=== PATIENT | female | born 1950 | race Caucasian/White ===

== ENCOUNTER 2022-07-27 12:35 | Observation (INO) ==
[2022-07-27] MEDS ORDERED: IOPAMIDOL 100 ML BOTTLE IV ONE (12:36)
--- NOTE | 2022-07-27 13:06 | Emergency Department Note ---
Neuro HPI General Chief Complaint: Neuro Symptoms/Deficit Stated Complaint: speech impairment Time Seen by Provider: 07/27/22 12:46 Source: patient and family Mode of arrival: ambulatory Limitations: no limitations History of Present Illness HPI Narrative: Narrative: Patient presents to ED with complaints of difficulty speaking. Patient states that she went to bed about 1030 last night and everything was fine. She woke up at 7 AM but did not speak and anybody. She called her daughter about 11 AM this morning and her daughter noticed that patient was not making any sense and her words were incoherent. She went over to the patient's house and patient was still incoherent and not making any sense when she tried to speak. She states that 1130 patient's symptoms started to get better in the daughter was able to understand the patient but her sentences were not making sense and she was talking about things that did not happen. She decided to come here to the ED. Here in the ED patient is back to baseline per daughter. Patient denies facial droopiness, extremity weakness, extremity numbness, cardiac chest pain, heart palpitation, shortness of breath, hemoptysis, vision changes, gait instability, bowel bladder incontinence, fever, chills, nausea, vomiting, diarrhea, dysuria, hematuria, urinary frequency. 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 She recently had a biopsy but still waiting on the results of that biopsy. Patient denies any other alleviating or aggravating factors. Related Data Home Medications Medication Instructions Recorded Confirmed Cranberry Tabs 1 tab PO QDAY 09/24/19 07/13/22 albuterol sulfate 90 mcg/actuation 2 puff inhalation QID PRN 09/24/19 07/13/22 aerosol inhaler (ProAir HFA) shortness of breath or wheezing cholecalciferol (vitamin D3) 50 2,000 unit PO QDAY 09/24/19 07/13/22 mcg (2,000 unit) capsule fluticasone propionate 50 1 spray intranasal BID 09/24/19 07/13/22 mcg/actuation nasal spray,suspension (Flonase Allergy Relief) famotidine 20 mg tablet 20 mg PO QDAY 11/06/20 07/13/22 vit C 250 mg-vit E 90 mg-zinc 40 1 tab PO BID 03/02/21 07/13/22 mg-copper 1 to-[id number] capsule (PreserVision AREDS-2) aspirin 325 mg tablet 325 mg PO QDAY PRN 07/13/22 07/13/22 Previous Rx's Medication Instructions Recorded hydrochlorothiazide 25 mg tablet 25 mg PO QAM PRN fluid retention 11/06/20 #30 tabs benzonatate 100 mg capsule 200 mg PO TID cough #90 caps 09/01/21 levothyroxine 100 mcg tablet 100 mcg PO QDAY #90 tabs 09/01/21 etodolac 400 mg tablet,extended See Rx Instructions .Route 01/19/22 release 24 hr .COMPLEX #60 tabs metoprolol succinate 50 mg 50 mg PO QDAY #90 tabs 02/17/22 tablet,extended release 24 hr baclofen 10 mg tablet 10 mg PO BID PRN spasm #60 tabs 04/28/22 ipratropium bromide 42 mcg (0.06 2 spray intranasal TID-QID PRN 05/19/22 %) nasal spray allergy symptoms #15 mL metformin 500 mg 24 hr 1,000 mg PO QDAY #60 tabs 05/19/22 tablet,extended release rosuvastatin 20 mg tablet 20 mg PO QDAY #90 tabs 05/19/22 telmisartan 40 mg tablet 40 mg PO QDAY #90 tabs 06/23/22 Allergies Allergy/AdvReac Type Severity Reaction Status Date / Time Amoxicillin Allergy Severe Unknown Verified 05/19/22 09:07 cephalexin [From Keflex] Allergy Severe Unknown Verified 05/19/22 09:07 Penicillins Allergy Severe Unknown Verified 05/19/22 09:07 prednisone Allergy Severe Unknown Verified 05/19/22 09:07 Review of Systems ROS ROS Narrative: Narrative: All systems ED: reviewed and negative except as stated. 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) Post-nasal drip (Acute) Hyperlipidemia (Acute) Renal failure (Acute) History of bone density study (Chronic ~2009) Tipped uterus (Chronic ~1992) Rapid heart rate (Chronic) Bronchitis (Chronic) Headache (Chronic) Heart burn (Chronic) Osteoporosis (Chronic) Gout (Chronic) Essential hypertension (Chronic) Arthritis (Chronic) Hypothyroidism (Chronic) Diabetes mellitus (Chronic) Physical exam, routine (Chronic) Knee osteoarthritis (Chronic) Urinary incontinence (Chronic) Encounter for long-term (current) use of medications (Chronic) Fatigue (Chronic) Medical History Arthritis Bronchitis Recurrent Diabetes mellitus Encounter for long-term (current) use of medications Essential hypertension BP elevated in clinic today at 160/82. Fatigue Gout Headache Heart burn History of bone density study (~2009) At [facility] Hypothyroidism Knee osteoarthritis Osteoporosis Physical exam, routine Rapid heart rate Periodically Tipped uterus (~1992) Urinary incontinence Surgical History History of arthroscopy of right knee (~1996) History of right knee surgery (~1970) Family History Mother Hypertension Arthritis Osteoporosis Father Hypertension Arthritis Myocardial infarction Skin cancer Sister Uterine cancer Family/Other Breast cancer Family/Other Hodgkins disease Lung cancer Grandmother Skin cancer Grandfather Stomach cancer Social History Substance Use: does not use Exam Narrative Narrative: Narrative: General Limitations: no limitations General appearance: Absent in distress Head Head: Present atraumatic and normocephalic Eye Eye: Present PERRL and EOMI ENT ENT: Present normal oropharynx and mucous membranes moist Neck Neck: Present normal inspection and full ROM; Absent meningismus Chest Chest: Present normal inspection; Absent tenderness Respiratory Respiratory: Present normal lung sounds bilaterally; Absent respiratory distress Cardiovascular Cardiovascular: Present regular rate and normal rhythm Adbominal Abdominal: Present soft and normal bowel sounds; Absent tenderness Extremities Extremities: Present full ROM and normal capillary refill Neurological Neurological: Present alert, oriented X3 and other (NIHS=0) Expanded Neurological CRANIAL NERVES: EOM function (II, III, IV, ): Normal, facial sensation (V): Normal, facial palsy (VII): Normal, gag reflex (IX): Normal, spinal accessory function (XI): Normal and tongue deviation (XII): Normal Motor strength - LUE: 5/5 Motor strength - RUE: 5/5 Motor strength - LLE: 5/5 Motor strength - RLE: 5/5 Psychiatric Psychiatric: Present normal affect and normal mood Skin Skin: Present warm (WNL) and intact Course Course Course Narrative: Patient was evaluated for concerns of stroke due to difficulty word finding. Labs were obtained and were unremarkable. CT of the head obtained with image reviewed myself with no acute pathology but does show a brain mass which is known to the patient. Case was discussed with telemetry neurologist who recommends CTA head and neck. He also recommend the patient be admitted to the hospital for stroke protocol to include MRI brain as well as echocardiogram. He recommends the patient be loaded with aspirin and Plavix followed by 21-day course of baby aspirin and Plavix. CTA head and neck obtained with image reviewed myself with no acute findings. Patient most likely had a TIA versus [facility]. She is outside the window for intervention. Case discussed with hospitalist who has agreed to admit the patient. Reevaluation(s) Reevaluation #1: Patient remains hemodynamically stable. No other complaints at this time Time: 13:50 Consultations Consultation #1: Telemetry neurologist who states that patient is outside the window for intervention. Recommend CTA head and neck along with brain MRI with echocardiogram during hospital stay. Also recommends aspirin 325 followed by Plavix 300 mg orally. He also recommends 21 days of 75 mg of Plavix and baby aspirin. Time: 13:13 Vital Signs Vital signs: Vital Signs Temperature 97.0 F 07/27/22 12:36 Pulse Rate 91 H 07/27/22 12:36 Respiratory Rate 20 07/27/22 12:36 Blood Pressure 152/89 07/27/22 12:36 Pulse Oximetry (%) 99 07/27/22 12:36 Oxygen Delivery Method Room Air 07/27/22 12:36 Temperature 97.0 F 07/27/22 12:36 Pulse Rate 72 07/27/22 15:21 Respiratory Rate 19 07/27/22 15:21 Blood Pressure 159/90 07/27/22 15:21 Pulse Oximetry (%) 97 07/27/22 15:21 Oxygen Delivery Method Room Air 07/27/22 13:10 MDM MDM Narrative Medical decision making narrative: Narrative: Differential Diagnosis Differential Diagnosis: CVA, stroke, carotid stenosis Medical Records Medical records reviewed: Yes I reviewed the patient's medical records. Lab Data Lab results reviewed: Yes I reviewed the patient's lab results. 07/27/22 13:23 Labs: Lab Results 07/27/22 07/27/22 07/27/22 Range/Units 13:08 13:10 13:23 WBC 9.2 (4.5-11.0) K/mcL RBC 5.06 (3.59-5.38) M/mcL Hgb 15.2 (11.2-15.7) g/dL Hct 47.2 H (34.1-44.9) % POC Hct 45.0 (36-48) MCV 93.3 (80.0-100.0) fL MCH 30.0 (26.0-34.0) pg MCHC 32.2 (31.0-36.0) g/dL RDW 13.5 (11.5-14.5) % Plt Count 250 (140-440) K/mcL MPV 10.3 (8.8-12.5) fL Immature Gran % (Auto) 0.5 (0.0-0.5) % Neut % (Auto) 71.7 (38.0-78.0) % Lymph % (Auto) 17.0 (15.5-49.0) % [place] % (Auto) 8.2 (1.0-12.0) % Eos % (Auto) 1.7 (0.0-7.0) % Baso % (Auto) 0.9 (0.0-2.0) % Lymph # (Auto) 1.57 (1.50-4.80) K/mcL [place] # (Auto) 0.76 (0.10-0.90) K/mcL Eos # (Auto) 0.16 (0.00-0.70) K/mcL Baso # (Auto) 0.08 (0.00-0.30) K/mcL Immature Gran # 0.05 (0.00-0.05) K/mcl Absolute Neutrophils 6.60 (1.80-8.00) K/mcL POC PT (11.9-14.5) POC INR (0.8-1.2) APTT (20.0-37.0) sec POC Sodium 140 (133-145) POC Potassium 3.7 (3.3-5.1) POC Chloride 101 (96-108) POC Total CO2 27.0 (22-30) POC BUN 11 (6-20) POC Creatinine 0.9 (0.6-1.2) POC Glucose 180 H (70-105) POC WB Ioniz Calcium 1.13 L (1.16-1.32) POC Troponin I < 0.02 (0.00-0.08) 07/27/22 07/27/22 Range/Units 13:23 13:23 WBC (4.5-11.0) K/mcL RBC (3.59-5.38) M/mcL Hgb (11.2-15.7) g/dL Hct (34.1-44.9) % POC Hct (36-48) MCV (80.0-100.0) fL MCH (26.0-34.0) pg MCHC (31.0-36.0) g/dL RDW (11.5-14.5) % Plt Count (140-440) K/mcL MPV (8.8-12.5) fL Immature Gran % (Auto) (0.0-0.5) % Neut % (Auto) (38.0-78.0) % Lymph % (Auto) (15.5-49.0) % [place] % (Auto) (1.0-12.0) % Eos % (Auto) (0.0-7.0) % Baso % (Auto) (0.0-2.0) % Lymph # (Auto) (1.50-4.80) K/mcL [place] # (Auto) (0.10-0.90) K/mcL Eos # (Auto) (0.00-0.70) K/mcL Baso # (Auto) (0.00-0.30) K/mcL Immature Gran # (0.00-0.05) K/mcl Absolute Neutrophils (1.80-8.00) K/mcL POC PT 12.7 (11.9-14.5) POC INR 1.1 (0.8-1.2) APTT 27.4 (20.0-37.0) sec POC Sodium (133-145) POC Potassium (3.3-5.1) POC Chloride (96-108) POC Total CO2 (22-30) POC BUN (6-20) POC Creatinine (0.6-1.2) POC Glucose (70-105) POC WB Ioniz Calcium (1.16-1.32) POC Troponin I (0.00-0.08) EKG Data EKG #1: EKG attestation: Yes I reviewed and interpreted this EKG. EKG shows normal: sinus rhythm Rate: normal Rhythm: NSR Hood/QRS: RBBB and LAHB/LAFB Heart block present: None ST segment elevation in: None ST segment depression in: None QTc: normal QRS morphology: Present normal Interpretation: no acute changes Core Measures AMI Core Measures Followed: Yes Discharge Plan Patient/Caregiver Discharge Instructions Pt seen by MATERIALS PLANNER/PRODUCTION PLANNER/PA only: No Clinical Impression: TIA (transient ischemic attack) Patient Disposition: Xfer As Outpt/Obs ([facility]) Condition: Good Follow up with: Veronica Urias ARNP [Primary Care Provider] - Prescriptions: No Action Cranberry Tabs tablet 1 tab PO QDAY cholecalciferol (vitamin D3) 50 mcg (2,000 unit) capsule 2,000 unit PO QDAY fluticasone propionate [Flonase Allergy Relief] 50 mcg/actuation spray,suspension 1 spray INTRANASAL BID Rx Instructions: 1 [place] each nostril Bid for up to 3-5 days, repeat if needed. albuterol sulfate [ProAir HFA] 90 mcg/actuation HFA aerosol inhaler 2 puff INHALATION QID PRN (Reason: shortness of breath or wheezing) hydrochlorothiazide 25 mg tablet 25 mg PO QAM PRN (Reason: fluid retention) Qty: 30 11RF etodolac 400 mg tablet extended release 24 hr See Rx Instructions .ROUTE .COMPLEX Qty: 60 3RF Dose Instruction: TAKE 1 TABLET BY MOUTH TWICE DAILY Rx Instructions: TAKE 1 TABLET BY MOUTH TWICE DAILY metoprolol succinate 50 mg tablet extended release 24 hr 50 mg PO QDAY Qty: 90 2RF baclofen 10 mg tablet 10 mg PO BID PRN (Reason: spasm) Qty: 60 3RF metformin 500 mg tablet,ER sekou.retention 24 hr 1,000 mg PO QDAY Qty: 60 5RF telmisartan 40 mg tablet 40 mg PO QDAY Qty: 90 1RF famotidine 20 mg tablet 20 mg PO QDAY aspirin 325 mg tablet 325 mg PO QDAY PRN levothyroxine 100 mcg tablet 100 mcg PO QDAY Qty: 90 3RF benzonatate 100 mg capsule 200 mg PO TID Qty: 90 2RF rosuvastatin 20 mg tablet 20 mg PO QDAY Qty: 90 2RF ipratropium bromide 42 mcg (0.06 %) spray,non-aerosol 2 spray intranasal TID-QID PRN (Reason: allergy symptoms) Qty: 15 1RF Rx Instructions: administer into each nostril PreserVision AREDS-2 250-90-40-1 mg capsule 1 tab PO BID
[2022-07-27 13:21] LABS: POC Calcium, Ionized 1.13 (1.16-1.32); POC Creatinine 0.9 (0.6-1.2); POC Potassium 3.7 (3.3-5.1)
[2022-07-27 13:26] LABS: POC INR 1.1 (0.8-1.2); POC Pro Time 12.7 (11.9-14.5)
[2022-07-27 14:01] LABS: Basophils # (Auto) 0.08 K/mcL (0.00-0.30); Basophils % (Auto) 0.9 % (0.0-2.0); Eosinophils # (Auto) 0.16 K/mcL (0.00-0.70); Eosinophils % (Auto) 1.7 % (0.0-7.0); Hematocrit 47.2 % (34.1-44.9); Hemoglobin 15.2 g/dL (11.2-15.7); Lymphocytes # (Auto) 1.57 K/mcL (1.50-4.80); Mean Cell Volume 93.3 fL (80.0-100.0); Mean Corpuscular HGB Conc 32.2 g/dL (31.0-36.0); Mean Platelet Volume 10.3 fL (8.8-12.5); Monocytes # (Auto) 0.76 K/mcL (0.10-0.90); Monocytes % (Auto) 8.2 % (1.0-12.0); Neutrophils % (Auto) 71.7 % (38.0-78.0); Platelet Count 250 K/mcL (140-440); RBC 5.06 M/mcL (3.59-5.38); Red Cell Distribution Width 13.5 % (11.5-14.5); WBC 9.2 K/mcL (4.5-11.0)
--- NOTE | 2022-07-27 14:21 | Cat Scan Report ---
CLINICAL INFORMATION: Neuro deficit COMPARISON: None. TECHNIQUE: 2.5 mm helical slices were obtained in the skull base to vertex prior to and after initial tracer 80 cc of Isovue-300. Following reconstruction, axial reformatted images were reviewed at bone and parenchymal windows. The exam was performed using radiation dose optimization techniques including, but not limited to, automated exposure control, adjustment of the mA and/or kV according to patient size and use of iterative reconstruction technique. FINDINGS: The ventricles, sulci, fissures, and cisterns are symmetrically enlarged compatible with mild age-related atrophy. No extra-axial fluid collections are identified. A 2.6 cm densely enhancing mass is seen in the mid right cerebellar hemisphere with moderate surrounding vasogenic edema and mild local mass effect. There is a 19 mm densely enhancing lesion in the perifalcine posterior right frontal lobe near vertex. It abuts the posterior falx-there is moderate surrounding vasogenic edema. Mild patchy chronic ischemic changes, in the deep cerebral white matter, are expected for age. There is no hemorrhage, mass effect, or edema. Bone windows show no osseous abnormality. IMPRESSION: Two densely enhancing masses inciting vasogenic edema: 2.6 cm the mid right cerebellum and 1.9 cm in the perifalcine left frontal lobe near vertex. Suspect metastatic disease from unknown primary carcinoma Interpreted and Authenticated by: Ron Nieto 07/27/22
--- NOTE | 2022-07-27 14:39 | Cat Scan Report ---
CLINICAL INFORMATION: Dysarthria COMPARISON: None. TECHNIQUE: 80 cc of Isovue-370 were injected intravenously , and using SmartPrep to maximize cerebral arterial opacification, 0.625 mm helical slices were obtained from the skull base through the cerebral vertex. Following reconstruction , sagittal, coronal and axial reformatted images were processed and reviewed at multiple windows and levels. 3D volume rendered and MIP images were acquired at a independent workstation. The exam was performed using radiation dose optimization techniques including, but not limited to, automated exposure control, adjustment of the mA and/or kV according to patient size and use of iterative reconstruction technique. FINDINGS: The intracranial internal carotid, vertebral, basilar, anterior, middle and posterior cerebral arteries and their branches are well-opacified and normal in contour and caliber without significant stenosis, occlusion or other pathology. Superficial/deep cerebral veins and deep venous sinuses are widely patent IMPRESSION: Normal exam Interpreted and Authenticated by: Ron Nieto 07/27/22
--- NOTE | 2022-07-27 15:03 | Cat Scan Report ---
CLINICAL INFORMATION: Dysarthria COMPARISON: None. TECHNIQUE: 80 cc of Isovue-300 were injected intravenously followed by 40 cc of normal saline flush. Using SmartPrep, 0.625 helical slices were obtained from the thoracic aortic arch through the [place]. Following reconstruction, 2.5 mm sagittal, coronal and axial reformatted images were processed. MIPS , 3-D volume rendering and CPR images were also constructed. The exam was performed using radiation dose optimization techniques including, but not limited to, automated exposure control, adjustment of the mA and/or kV according to patient size and use of iterative reconstruction technique. FINDINGS: The thoracic aortic arch is normal diameter with minimal intimal thickening and conventional aortic branching. The brachiocephalic, both subclavian, both common, internal and external carotid and both vertebral arteries are widely patent without significant abnormality. There are multiple enlarged deep cervical lymph nodes in the right anterior posterior triangle and in the right axillary region with moderate edema within these regions. History of malignancy acknowledged these likely represent metastatic adenopathy. IMPRESSION: Thoracic arch brachycephalic all carotid vertebral subclavian arteries Moderately enlarged right deep cervical and axillary lymph nodes with moderate edema. Presumably metastatic adenopathy Interpreted and Authenticated by: Ron Nieto 07/27/22
[2022-07-27 15:34] LABS: Color,Urine LT. YELLOW
[2022-07-27 15:35] LABS: Appearance,Urine CLEAR (Clear); Bilirubin,Urine NEGATIVE (Negative); Culture Indicated,Urine No; Glucose,Urine (UA) NEGATIVE (Negative); Ketones,Urine NEGATIVE (Negative); Leukocyte Esterase,Urine NEGATIVE /uL (Negative); Nitrate,Urine NEGATIVE (Negative); Protein,Urine NEGATIVE (Negative); Urine Blood NEGATIVE ery/mcL (Negative); Urobilinogen,Urine Normal
[2022-07-27 16:10] LABS: ALT/SGPT 12 U/L (<40); AST/SGOT 25 U/L (<32); Albumin 3.4 gm/dL (3.2-5.2); Alkaline Phosphatase 55 U/L (39-117); Bilirubin,Direct < 0.2 mg/dL (0-0.3); Bilirubin,Total 0.7 mg/dL (0.1-1.0); Globulin 3.2 gm/dL (2.2-3.7)
--- NOTE | 2022-07-27 16:17 | Internal Med History&Physical ---
HPI History of Present Illness Patient information: Note initiated : 07/27/22 at 4:15 pm Service Date, if different from initiated Date: [] Patient: Mini Salinas 71 y/o F admitted on for speech impairment. Chief Complaint: [Aphasia] Chief complaint: Speech difficulty History of present illness: Ms. Salinas is a 71 year old obese female with a past medical history significant for hypertension, hyperlipidemia, diabetes mellitus type 2, and hypothyroidism who presents to the hospital with aphasia that lasted approximately 1 hour this morning. The patient's family noticed that she was having word finding difficulty. The patient states that she was unable to express herself. There were no other focal neurological deficits. The family were concerned about a possible stroke and brought her in to the ER for evaluation. On arrival, she was hemodynamically stable and afebrile. Her neurological deficits had resolved. Review of Systems All systems: reviewed and no additional remarkable complaints except as stated Constitutional Constitutional: Present as per HPI EENT Eyes: Present as per HPI; Absent blurry vision Cardiovascular Cardiovascular: Present as per HPI; Absent chest pain, dyspnea, dyspnea on e xertion, leg edema or palpatations Respiratory Respiratory: Present as per HPI; Absent cough, dyspnea, dyspnea on exertion, wheezing or stridor Gastrointestinal Gastrointestinal: Present as per HPI; Absent abdominal pain, diarrhea, dysphagia, hematemesis, melena, nausea or vomiting Musculoskeletal Musculoskeletal: Present as per HPI; Absent joint swelling, limited range of motion, muscle cramps, muscle weakness or myalgias Integumentary Integumentary: Present as per HPI; Absent erythema, new lesions, rash or wounds Neurological Neurological: Present as per HPI; Absent abnormal gait, behavioral changes, focal weakness, headache(s), loss of vision, numbness, sensory deficit or syncope Endocrine Endocrine: Absent change in body appearance, fatigue or heat intolerance Hematologic/Lymphatic Hematologic/Lymphatic: Present as per HPI PFSH PFSH All Active Problems (Updated 07/27/22 @ 15:33 by Rashi Dawson DO) TIA (transient ischemic attack) (Acute) Parotid mass (Acute) Mass of cerebellum (Acute) Post-nasal drip (Acute) Hyperlipidemia (Acute) Renal failure (Acute) History of bone density study (Chronic ~2009) Tipped uterus (Chronic ~1992) Rapid heart rate (Chronic) Bronchitis (Chronic) Headache (Chronic) Heart burn (Chronic) Osteoporosis (Chronic) Gout (Chronic) Essential hypertension (Chronic) Arthritis (Chronic) Hypothyroidism (Chronic) Diabetes mellitus (Chronic) Physical exam, routine (Chronic) Knee osteoarthritis (Chronic) Urinary incontinence (Chronic) Encounter for long-term (current) use of medications (Chronic) Fatigue (Chronic) Medical History Arthritis Bronchitis Recurrent Diabetes mellitus Encounter for long-term (current) use of medications Essential hypertension BP elevated in clinic today at 160/82. Fatigue Gout Headache Heart burn History of bone density study (~2009) At [facility] Hypothyroidism Knee osteoarthritis Osteoporosis Physical exam, routine Rapid heart rate Periodically Tipped uterus (~1992) Urinary incontinence Surgical History History of arthroscopy of right knee (~1996) History of right knee surgery (~1970) Family History Mother Hypertension Arthritis Osteoporosis Father Hypertension Arthritis Myocardial infarction Skin cancer Sister Uterine cancer Family/Other Breast cancer Family/Other Hodgkins disease Lung cancer Grandmother Skin cancer Grandfather Stomach cancer Social History occupational status: 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 @ [employer] substance use type: does not use MEDS/ALLERGIES Home Medications and Allergies Home Medications Medication Instructions Recorded Confirmed Type Cranberry Tabs 1 tab PO QDAY 09/24/19 07/27/22 History albuterol sulfate 90 mcg/actuation 2 puff inhalation QID PRN 09/24/19 07/27/22 History aerosol inhaler (ProAir HFA) shortness of breath or wheezing cholecalciferol (vitamin D3) 50 5,000 unit PO QDAY 09/24/19 07/27/22 History mcg (2,000 unit) capsule fluticasone propionate 50 1 spray intranasal BID 09/24/19 07/27/22 History mcg/actuation nasal spray,suspension (Flonase Allergy Relief) famotidine 20 mg tablet 20 mg PO QDAY 11/06/20 07/27/22 History levothyroxine 100 mcg tablet 100 mcg PO QDAY #90 tabs 09/01/21 07/27/22 Rx metoprolol succinate 50 mg 50 mg PO QDAY #90 tabs 02/17/22 07/27/22 Rx tablet,extended release 24 hr baclofen 10 mg tablet 10 mg PO BID PRN spasm #60 tabs 04/28/22 07/27/22 Rx telmisartan 40 mg tablet 40 mg PO QDAY #90 tabs 06/23/22 07/27/22 Rx etodolac 400 mg tablet,extended 400 mg PO BID 07/27/22 07/27/22 History release 24 hr metformin 500 mg 24 hr 500 mg PO QDAY 07/27/22 07/27/22 History tablet,extended release rosuvastatin 20 mg tablet 10 mg PO QDAY 07/27/22 07/27/22 History vitamin A-vitamin C-vit E-min 1 tab PO QDAY 07/27/22 07/27/22 History tablet Allergies Allergy/AdvReac Type Severity Reaction Status Date / Time Amoxicillin Allergy Severe Unknown Verified 05/19/22 09:07 cephalexin [From Keflex] Allergy Severe Unknown Verified 05/19/22 09:07 Penicillins Allergy Severe Unknown Verified 05/19/22 09:07 prednisone Allergy Severe Unknown Verified 05/19/22 09:07 EXAM Constitutional Vitals: Temp Pulse Resp BP Pulse Ox O2 Del Method 97.0 F 67 17 157/93 99 Room Air 07/27/22 12:36 07/27/22 16:05 07/27/22 16:05 07/27/22 16:00 07/27/22 16:05 07/27/22 13:10 General appearance: average body habitus Head Head exam: Present atraumatic, normal inspection and normocephalic Eye Eye exam: Present EOMI, normal appearance and PERRL; Absent conjunctival injection ENT ENT exam: Present normal exam; Absent mucous membranes dry Neck Neck exam: Present full ROM; Absent lymphadenopathy Respiratory Respiratory exam: Present normal respiratory exam and CTAB; Absent decreased breath sounds, respiratory distress or wheezes Cardiovascular Cardiovascular exam: Present normal rate and rhythm and RRR; Absent JVD GI/Abdominal GI/Abdominal exam: Present normal bowel sounds and soft; Absent diminished bowel sounds, distended, guarding, mass, rebound or tenderness Neurological Exam Neurological exam: Present alert, CN II-XII intact and oriented X3 Psychiatric Psychiatric exam: Present normal affect and normal mood Skin Skin exam: Present intact and warm; Absent erythema, pallor, petechiae or rash DATA Data Completed and Pending Labs: Labs from last 24 hours 07/27/22 07/27/22 07/27/22 14:50 13:23 13:23 WBC RBC Hgb Hct POC Hct MCV MCH MCHC RDW Plt Count MPV Immature Gran % (Auto) Neut % (Auto) Lymph % (Auto) [place] % (Auto) Eos % (Auto) Baso % (Auto) Lymph # (Auto) [place] # (Auto) Eos # (Auto) Baso # (Auto) Immature Gran # Absolute Neutrophils POC PT 12.7 POC INR 1.1 APTT 27.4 POC Sodium POC Potassium POC Chloride POC Total CO2 POC BUN POC Creatinine POC Glucose POC WB Ioniz Calcium Total Bilirubin Direct Bilirubin AST ALT Alkaline Phosphatase Total Protein Albumin Globulin Urine Color Lt. yellow Urine Appearance Clear Urine pH 7.0 Ur Specific [place] 1.010 Urine Protein Negative Urine Glucose (UA) Negative Urine Ketones Negative Urine Occult Blood Negative Urine Nitrate Negative Urine Bilirubin Negative Urine Urobilinogen Normal Ur Leukocyte Esterase Negative Ur Culture Indicated? No POC Troponin I 07/27/22 07/27/22 07/27/22 13:23 13:22 13:10 WBC 9.2 RBC 5.06 Hgb 15.2 Hct 47.2 H POC Hct MCV 93.3 MCH 30.0 MCHC 32.2 RDW 13.5 Plt Count 250 MPV 10.3 Immature Gran % (Auto) 0.5 Neut % (Auto) 71.7 Lymph % (Auto) 17.0 [place] % (Auto) 8.2 Eos % (Auto) 1.7 Baso % (Auto) 0.9 Lymph # (Auto) 1.57 [place] # (Auto) 0.76 Eos # (Auto) 0.16 Baso # (Auto) 0.08 Immature Gran # 0.05 Absolute Neutrophils 6.60 POC PT POC INR APTT POC Sodium POC Potassium POC Chloride POC Total CO2 POC BUN POC Creatinine POC Glucose POC WB Ioniz Calcium Total Bilirubin 0.7 Direct Bilirubin < 0.2 AST 25 ALT 12 Alkaline Phosphatase 55 Total Protein 6.6 Albumin 3.4 Globulin 3.2 Urine Color Urine Appearance Urine pH Ur Specific [place] Urine Protein Urine Glucose (UA) Urine Ketones Urine Occult Blood Urine Nitrate Urine Bilirubin Urine Urobilinogen Ur Leukocyte Esterase Ur Culture Indicated? POC Troponin I < 0.02 07/27/22 13:08 WBC RBC Hgb Hct POC Hct 45.0 MCV MCH MCHC RDW Plt Count MPV Immature Gran % (Auto) Neut % (Auto) Lymph % (Auto) [place] % (Auto) Eos % (Auto) Baso % (Auto) Lymph # (Auto) [place] # (Auto) Eos # (Auto) Baso # (Auto) Immature Gran # Absolute Neutrophils POC PT POC INR APTT POC Sodium 140 POC Potassium 3.7 POC Chloride 101 POC Total CO2 27.0 POC BUN 11 POC Creatinine 0.9 POC Glucose 180 H POC WB Ioniz Calcium 1.13 L Total Bilirubin Direct Bilirubin AST ALT Alkaline Phosphatase Total Protein Albumin Globulin Urine Color Urine Appearance Urine pH Ur Specific [place] Urine Protein Urine Glucose (UA) Urine Ketones Urine Occult Blood Urine Nitrate Urine Bilirubin Urine Urobilinogen Ur Leukocyte Esterase Ur Culture Indicated? POC Troponin I A/P Assessment and plan (1) TIA (transient ischemic attack): Status: Acute (2) Parotid mass: Status: Acute (3) Mass of cerebellum: Status: Acute (4) Hyperlipidemia: Status: Acute (5) Essential hypertension: Status: Chronic Comment: BP elevated in clinic today at 160/82. (6) Hypothyroidism: Status: Chronic Qualifiers: Hypothyroidism type: acquired Qualified Code(s): E03.9 - Hypothyroidism, unspecified Narrative A/P Narrative: The patient likely has a TIA given that she has multiple risk factors and her neurological deficits resolved within 24 hours. She is currently being worked up for a cerebellar mass and has follow-up at the cancer center for PET scan at the end of the month. We will do MRI tomorrow morning. CTA head and neck was unrevealing. We will continue aspirin and atorvastatin for the time being. We will monitor on telemetry. Continue every 4 hours neurochecks and she will be assessed by PT. Medication reconciliation is pending. Time Spent With Patient Time: Total time spent is greater than 50% in coordination of care (as documented) at patient's floor/unit and/or counseling patient: Initial: Total time with patient: 75 - 90 minutes QUALITY Stroke Symptom Onset Unknown: No
[2022-07-27] MEDS ORDERED: ONDANSETRON 4 MG/2 ML VIAL IV PRN (16:53)
--- NOTE | 2022-07-27 17:55 | Magnetic Resonance Report ---
CLINICAL INFORMATION: TIA. COMPARISON: None. TECHNIQUE:Sagittal T1 FLAIR, axial T1 FLAIR, T2 FLAIR propeller, T2 propeller, gradient, diffusion, ADC and coronal T2 weighted images were acquired. FINDINGS: The ventricles, sulci, fissures and cisterns are symmetrically enlarged relative mild age-related atrophy. Moderate chronic ischemic changes in the deep cerebral white matter. There is moderate vasogenic edema surrounding the perifalcine posterior left frontal lesion seen on CT. There is also moderate edema surrounding inferior right cerebellar lesion. No areas of restricted diffusion to suggest infarct. IMPRESSION: No evidence of acute infarct. Vasogenic edema surrounding known posterior left frontal perifalcine and right cerebellar lesions likely reflect metastases Interpreted and Authenticated by: Ron Nieto 07/27/22
[2022-07-27] MEDS ORDERED: ATORVASTATIN 40 MG TABLET PO SCH (21:00)
[2022-07-27] MEDS ORDERED: SENNOSIDES 1 TABLET PO SCH (21:00)
[2022-07-27] MEDS: DOCUSATE SODIUM 100 MG CAPSULE PO SCH (21:46)
[2022-07-27] MEDS: 0.9 % SODIUM CHLORIDE 10 ML SYRINGE IV SCH (21:46)
[2022-07-28] MEDS ORDERED: ACETAMINOPHEN 325 MG TABLET PO ONE (00:21)
[2022-07-28] MEDS: ACETAMINOPHEN 325 MG TABLET PO PRN ×2 (00:22→07:15)
[2022-07-28] MEDS: 0.9 % SODIUM CHLORIDE 10 ML SYRINGE IV SCH (06:01)
[2022-07-28 06:18] LABS: Basophils # (Auto) 0.08 K/mcL (0.00-0.30); Basophils % (Auto) 0.9 % (0.0-2.0); Eosinophils # (Auto) 0.24 K/mcL (0.00-0.70); Eosinophils % (Auto) 2.7 % (0.0-7.0); Hematocrit 42.3 % (34.1-44.9); Hemoglobin 13.8 g/dL (11.2-15.7); Lymphocytes # (Auto) 1.65 K/mcL (1.50-4.80); Lymphocytes % (Auto) 18.7 % (15.5-49.0); Mean Cell Volume 92.8 fL (80.0-100.0); Mean Corpuscular HGB Conc 32.6 g/dL (31.0-36.0); Monocytes # (Auto) 0.98 K/mcL (0.10-0.90); Monocytes % (Auto) 11.1 % (1.0-12.0); Platelet Count 204 K/mcL (140-440); RBC 4.56 M/mcL (3.59-5.38); Red Cell Distribution Width 13.4 % (11.5-14.5); WBC 8.8 K/mcL (4.5-11.0)
[2022-07-28 06:25] LABS: Blood Urea Nitrogen 11 mg/dL (8-23); Calcium 8.7 mg/dL (8.6-10.4); Carbon Dioxide 29 mmol/L (22-30); Chloride 104 mmol/L (96-108); Glomerular Filtration Rate 73; Glucose 128 mg/dL (70-105)
[2022-07-28] MEDS: DOCUSATE SODIUM 100 MG CAPSULE PO SCH (08:37)
[2022-07-28] MEDS ORDERED: ENOXAPARIN 40 MG/0.4 ML SYRINGE SQ SCH (09:00)
[2022-07-28] MEDS ORDERED: ASPIRIN 81 MG TAB.CHEW CHEWED SCH (09:00)
--- NOTE | 2022-07-28 12:01 | EKG ---
Formerly [facility] Test Date: 2022-07-27 Pat Name: Mini Salinas Department: ED Room: Gender: Female Development Specialist: alexandr : 1950 Requested By: Rashi Dawson Order Number: [id number] Reading MD: Ron Ochoa M.D. Measurements Intervals [place] Rate: 77 P: 58 NV: 154 QRS: -76 QRSD: 115 T: 45 QT: 417 QTc: 472 Interpretive Statements Sinus rhythm Incomplete RBBB and LAFB Electronically Signed On 07-28-2022 12:00:50 PST by Ron Ochoa M.D. /store/[email or web address]/[id number]
--- NOTE | 2022-07-28 14:36 | Discharge Summary ---
Discharge Provider Provider IMPORTANT FOLLOW-UP INFORMATION FOR PCP: 1. PET scan 2. Oncology f/u Patient information: Note initiated : 07/28/22 at 2:33 pm Service Date, if different from initiated Date: [] Patient: Mini Salinas 71 y/o F admitted on 07/27/22 for speech impairment. Chief Complaint: [Aphasia] Date of admission: 07/27/22 16:45 Discharge date: 07/28/22 Primary care physician: Veronica Urias Admitting clinician: Cierra Kay Consults: 07/27/22 12:47 Consult to Physician [CONS] Stat Comment: Consulting Provider: [facility] Reason For Exam: Physician to Consult 07/27/22 15:15 Consult to Physician [CONS] Stat Comment: Consulting Provider: Cierra Kay Reason For Exam: Physician to Consult Discharging clinician: Cierra Kay COURSE Hospital Course Hospital course: History of present illness: Ms. Salinas is a 71 year old obese female with a past medical history significant for hypertension, hyperlipidemia, diabetes mellitus type 2, and hypothyroidism who presents to the hospital with aphasia that lasted approximately 1 hour this morning. The patient's family noticed that she was having word finding difficulty. The patient states that she was unable to express herself. There were no other focal neurological deficits. The family were concerned about a possible stroke and brought her in to the ER for evaluation. On arrival, she was hemodynamically stable and afebrile. Her neurological deficits had resolved. A/P Narrative: The patient likely has a TIA given that she has multiple risk factors and her neurological deficits resolved within 24 hours. She is currently being worked up for a cerebellar mass and has follow-up at the cancer center for PET scan at the end of the month. We will do MRI tomorrow morning. CTA head and neck was unrevealing. We will continue aspirin and atorvastatin for the time being. We will monitor on telemetry. Continue every 4 hours neurochecks and she will be assessed by PT. Medication reconciliation is pending. 07/28: The patient's MRI of the brain was concerning for metastatic disease as she was found to have left frontal lesion as well as right cerebellar lesion. There was some vasogenic edema. Her transient neurological deficits may have been in the setting of new lesions that are likely malignant. We will discontinue aspirin and atorvastatin. She will follow-up for PET scan at the end of the month and then has an urgent oncologic follow-up. Plan of care was discussed with the patient and she was in agreement. All of her questions were answered to her satisfaction. Discharge diagnosis: Cerebral metastasis suspected Time Spent with Patient Time attestation: Total time spent providing and/or coordinating discharge services: Time spent: Greater than 30 minutes EXAM Constitutional Vitals: Temp Pulse Resp BP Pulse Ox O2 Del Method 98.6 F 82 19 129/70 96 Room Air 07/28/22 12:08 07/28/22 14:01 07/28/22 08:11 07/28/22 14:01 07/28/22 14:01 07/28/22 14:01 General appearance: average body habitus Head Head exam: Present atraumatic, normal inspection and normocephalic Eye Eye exam: Present EOMI, normal appearance and PERRL; Absent conjunctival injection ENT ENT exam: Present normal exam; Absent mucous membranes dry Neck Neck exam: Present full ROM; Absent lymphadenopathy Respiratory Respiratory exam: Present normal respiratory exam and CTAB; Absent decreased сергей ath sounds, respiratory distress or wheezes Cardiovascular Cardiovascular exam: Present normal rate and rhythm and RRR; Absent JVD GI/Abdominal GI/Abdominal exam: Present normal bowel sounds and soft; Absent diminished bowel sounds, distended, guarding, mass, rebound or tenderness Neurological Exam Neurological exam: Present alert, CN II-XII intact and oriented X3 Psychiatric Psychiatric exam: Present normal affect and normal mood Skin Skin exam: Present intact and warm; Absent erythema, pallor, petechiae or rash Discharge Data Data Completed and Pending Labs on day of discharge: Labs from last 24 hours 07/28/22 07/28/22 07/27/22 05:06 05:06 14:50 WBC 8.8 RBC 4.56 Hgb 13.8 Hct 42.3 MCV 92.8 MCH 30.3 MCHC 32.6 RDW 13.4 Plt Count 204 MPV 10.0 Immature Gran % (Auto) 0.6 H Neut % (Auto) 66.0 Lymph % (Auto) 18.7 [place] % (Auto) 11.1 Eos % (Auto) 2.7 Baso % (Auto) 0.9 Lymph # (Auto) 1.65 [place] # (Auto) 0.98 H Eos # (Auto) 0.24 Baso # (Auto) 0.08 Immature Gran # 0.05 Absolute Neutrophils 5.81 Sodium 142 Potassium 3.6 Chloride 104 Carbon Dioxide 29 Anion Gap 9.0 BUN 11 Creatinine 0.8 GFR Calculation 73 Glucose 128 H Calcium 8.7 Total Bilirubin Direct Bilirubin AST ALT Alkaline Phosphatase Total Protein Albumin Globulin Urine Color Lt. yellow Urine Appearance Clear Urine pH 7.0 Ur Specific [place] 1.010 Urine Protein Negative Urine Glucose (UA) Negative Urine Ketones Negative Urine Occult Blood Negative Urine Nitrate Negative Urine Bilirubin Negative Urine Urobilinogen Normal Ur Leukocyte Esterase Negative Ur Culture Indicated? No 07/27/22 13:22 WBC RBC Hgb Hct MCV MCH MCHC RDW Plt Count MPV Immature Gran % (Auto) Neut % (Auto) Lymph % (Auto) [place] % (Auto) Eos % (Auto) Baso % (Auto) Lymph # (Auto) [place] # (Auto) Eos # (Auto) Baso # (Auto) Immature Gran # Absolute Neutrophils Sodium Potassium Chloride Carbon Dioxide Anion Gap BUN Creatinine GFR Calculation Glucose Calcium Total Bilirubin 0.7 Direct Bilirubin < 0.2 AST 25 ALT 12 Alkaline Phosphatase 55 Total Protein 6.6 Albumin 3.4 Globulin 3.2 Urine Color Urine Appearance Urine pH Ur Specific [place] Urine Protein Urine Glucose (UA) Urine Ketones Urine Occult Blood Urine Nitrate Urine Bilirubin Urine Urobilinogen Ur Leukocyte Esterase Ur Culture Indicated? Discharge Plan Patient/Caregiver Discharge Instructions Instructions: Brain Metastasis (GEN) Activity Restrictions/Additional Instructions: Follow up at the Cancer Center as previously scheduled: Prescriptions: Continued Cranberry Tabs tablet 1 tab PO QDAY cholecalciferol (vitamin D3) 50 mcg (2,000 unit) capsule 5,000 unit PO QDAY fluticasone propionate [Flonase Allergy Relief] 50 mcg/actuation spray,suspension 1 spray INTRANASAL BID Rx Instructions: 1 [place] each nostril Bid for up to 3-5 days, repeat if needed. metoprolol succinate 50 mg tablet extended release 24 hr 50 mg PO QDAY Qty: 90 2RF baclofen 10 mg tablet 10 mg PO BID PRN (Reason: spasm) Qty: 60 3RF telmisartan 40 mg tablet 40 mg PO QDAY Qty: 90 1RF famotidine 20 mg tablet 20 mg PO QDAY levothyroxine 100 mcg tablet 100 mcg PO QDAY Qty: 90 3RF vitamin A-vitamin C-vit E-min Tablet 1 tab PO QDAY etodolac 400 mg tablet extended release 24 hr 400 mg PO BID rosuvastatin 20 mg tablet 20 mg PO QDAY metformin 500 mg tablet,ER sekou.retention 24 hr 500 mg PO QDAY Follow Up Plan Follow up with: Domingo Mcintyre MD [Physician] - 08/06/22 1:00 pm (Continue with your scheduled appointment.) Veronica Urias ARNP [Primary Care Provider] - (Your Primary Care Physician will contact you to schedule an appointment.) Patient Disposition: Home, Self-Care Prognosis: Good I certify that the patient requires SNF services: No Overall status at discharge: patient is progressing back to baseline Discharge Orders: Discharge Order (Routine); Ordered 07/28/22 Ordered By: Cierra OSBORNE VTE Deep Vein Thrombosis/Pulmonary Embolism Present on Admission: No
== END 2022-07-28 15:25 | disposition home or self-care (01) ==
LOC: ED 12:35 → ICU 12:35
PROVIDERS: ADMIT Student in an Organized Health Care Education/Training Program; ATTEND Student in an Organized Health Care Education/Training Program